=== PATIENT | female | born 1945 | race Caucasian/White ===

== ENCOUNTER → 2020-08-25 | Outpatient (CLI) | payer OTHER | LOC: SJCVCIMAG 07:39 | PROVIDERS: ATTEND Internal Medicine | DX: I08.1 Rheumatic disorders of both mitral and tricuspid valves (principal); I11.9 Hypertensive heart disease without heart failure; I27.20 Pulmonary hypertension, unspecified; I77.819 Aortic ectasia, unspecified site; I48.91 Unspecified atrial fibrillation; E11.9 Type 2 diabetes mellitus without complications; E78.5 Hyperlipidemia, unspecified; Z79.899 Other long term (current) drug therapy ==

== ENCOUNTER → 2020-09-01 | Outpatient (CLI) | payer OTHER ==
--- NOTE | ~2020-09-01 | PFR/MVV ---
[facility] [place] [address] PULMONARY FUNCTION MVV/REPORT Name: BEATRIS VERMA Room #: REG [facility]#: [id number] Admission: 09/01/20 Attend Phys: Adria Mcfadden MD, [facility] Discharge: Date of : 43 Report #: [id number] THIS REPORT FOR: //name// >> SPIROMETRY: (BTPS) Height: in cm Weight: lbs kg Exam Date: PRE-RX POST-RX PRED BEST %PRED BEST %PRED %CHG FVC LITERS . . . . . . FEV1 LITERS . . . . . . FEV1/FVC % . . . . . . DTU74-87% L/Sec . . . . . . PEF L/SEC . . . . . . FEF50/FIF50 UNITLESS . . . . . . MVV L/Min . . . f 1/Min . . . >> LUNG VOLUMES: (BTPS) PRE-RX POST-RX PRED AVG %PRED AVG %PRED %CHG VC Liters . . . . . . TLC Liters . . . . . . RV Liters . . . . . . RV/TLC % . . . . . . FRC PL Liters . . . . . . FRC N2 Liters . . . . . . ERV Liters . . . . . . IC Liters . . . . . . >> DIFFUSION: DLCO ml/Min/mmHg . . . . . . DL Abdoulaye ml/Min/mmHg . . . . . . DLCO/VA ml/Min/mmHg . . . . . . VA Liters . . . . . . COMMENTS: COMMENTS: >> RESISTANCE: [facility] [address] [place] [address] PULMONARY FUNCTION MVV/REPORT Name: BEATRIS VERMA Room #: REG [facility]#: [id number] Admission: 09/01/20 Attend Phys: Adria Mcfadden MD, [facility] Discharge: Date of : 43 Report #: [id number] PRE-RX PRED AVG %PRED Raw Total cmH20/L/Sec . . . Raw Insp cmH20/L/Sec . . . Raw Exp cmH20/L/Sec . . . Raw cmH20/L/Sec . . . Gaw L/Sec/cmH20 . . . sRaw cmH20 Sec . . . sGaw l/cmH20 Sec . . . Vtq Liters . . . # = OUTSIDE 95% CONFIDENCE INTERVAL CALIBRATION: PRED: 3.00 ACTUAL: EXP 3.01 INSP 3.02 [facility] [address] [id number] >> INTERPRETATION/IMPRESSION: DOC #: [id number] Claude Osorio M.D. ATTENDING PHYSICIAN: Dr. Mcfadden. SPIROMETRY: FEV1 is 1.88 liters (100% predicted). FVC is 2.45 liters (90% of predicted), FEV1/FVC ratio is 77%. There is no significant response to bronchodilator therapy. LUNG VOLUMES: Total lung capacity is 5.27 liters (110%). RV is 2.41 liters (122%). Diffusing capacity is 76%. IMPRESSION: Pulmonary function studies are normal. There is no evidence of obstruction. There is no significant response to bronchodilator therapy. Lung volumes are normal with mild hyperinflation. Diffusing capacity is normal. Claude ALMAGUER/CLINT By: Claude Osorio MD /nt
== END ==
LOC: PUL 07:56
PROVIDERS: ATTEND Internal Medicine
DX: J98.11 Atelectasis (principal); I10 Essential (primary) hypertension; R06.02 Shortness of breath

== ENCOUNTER → 2020-09-21 | Outpatient (CLI) | payer OTHER | LOC: RAD 10:29 | PROVIDERS: ATTEND Internal Medicine | DX: R06.00 Dyspnea, unspecified (principal) ==

== ENCOUNTER → 2021-03-19 | Outpatient (CLI) | payer OTHER ==
[~2021-03-19] VITALS: Ht 162.6 cm; Wt 86.8 kg
[~2021-03-19] MED LIST: CALCIUM CITRAT1 EAC7 PO; CHROMIUM400 MCG PO; FLONASE 0.05%50 MCG NASAL; FOLIC ACID0.4 MG PO; LOPRESSOR50 MG PO; METFORMIN HCL500 M3 PO; NEURONTIN300 MG PO; OMEPRAZOLE40 MG PO; SIMVASTATIN40 MG PO; TYLOPHEN500 MG PO; VITAMIN D250 MC1 PO; XARELTO20 MG PO
[2021-03-19 07:43] VITALS: BP 121/73
--- NOTE | 2021-03-19 09:14 | TEE ---
[facility] [place] [address] TRANSESOPHAGEAL ECHOCARDIOGRAM Name: BEATRIS VERMA Room #: REG [facility].#: [id number] Admission: 03/19/21 Attend Phys: Adria Mcfadden MD, Discharge: Date of : 43 Report #: [id number] THIS REPORT FOR: cc: Ronnie Yepez,Ronnie Nesbitt,Adria Maria MD [facility] ~ APPROVED REPORT Study performed: 03/19/2021 07:39:31 EXAM: Transesophageal Echocardiogram with Doppler and cardioversion Patient Location: Out-Patient Status: routine BSA: 1.94 HR: 75 bpm BP: 125/79 mmHg Rhythm: Atrial Fibrillation Other Information Study Quality: Adequate Indications Atrial Fibrillation Cardioversion. Procedure After obtaining informed consent, patient underwent transesophageal echo in the [employer]. Type of Sedation : Conscious Sedation Sedation was administered by Justina Davis RN. Sedation start time: 0759 Case end Time: 808 Sedation was achieved intravenously with: Versed (3) Fentanyl (50) Transesophageal probe was inserted and advanced into esophagus without difficulty by Adria Mcfadden MD. Echo enhancement indication: R/O Septal defect. Echo enhancement agent administered: Agitated Saline The DEE DEE was performed without complications. Synchronized Cardioversion attempted: Successful Synchronized Cardioversion acheived with 150 Joules after 1 attempt(s). Rhythm following Synchronized Cardioversion: Normal Sinus Rhythm Throughout the procedure, the blood pressure, pulse oximetry, cardiac [facility] [address] [place] [address] TRANSESOPHAGEAL ECHOCARDIOGRAM Name: BEATRIS VERMA Room #: REG [facility].#: [id number] Admission: 03/19/21 Attend Phys: Adria Mcfadden, Discharge: Date of : 43 Report #: [id number] rhythm, and rate were monitored. The patient tolerated the procedure without adverse effects. Recovery from conscious sedation was uneventful and vital signs were stable. Left Ventricle The left ventricle is normal size. There is normal LV segmental wall motion. There is normal left ventricular wall thickness. Left ventricular systolic function is normal. LVEF is 55%. Right Ventricle The right ventricle is normal size. The right ventricular systolic function is normal. Atria Severe biatrial enlargement. No shunting noted with contrast bubble injection. No thrombus is visualized in the left atrium or appendage. Aortic Valve The aortic valve is normal in structure. No aortic regurgitation is present. There is no aortic valvular stenosis. Mitral Valve The mitral valve is normal in structure. Moderate mitral regurgitation. No evidence of mitral valve stenosis. Tricuspid Valve The tricuspid valve is normal in structure. Moderate tricuspid regurgitation. Pulmonic Valve The pulmonary valve is normal in structure. Trace pulmonic regurgitation. Great Vessels The aortic root is normal in size. The ascending aorta is normal in size. IVC is normal in size and collapses >50% with inspiration. Pericardium There is no pericardial effusion. <Conclusion> Left ventricular systolic function is normal. There is normal LV segmental wall motion. [facility] [address] [place] [address] TRANSESOPHAGEAL ECHOCARDIOGRAM Name: BEATRIS VERMA Room #: REG [facility].#: [id number] Admission: 03/19/21 Attend Phys: Adria Mcfadden, Discharge: Date of : 43 Report #: [id number] LVEF is 55%. Severe biatrial enlargement. No shunting noted with contrast bubble injection. No thrombus is visualized in the left atrium or appendage. The aortic valve is normal in structure. No aortic regurgitation or stenosis. The mitral valve is normal in structure. Moderate mitral regurgitation. There is no pericardial effusion. Successful cardioversion of atrial fibrillation to sinus rhythm following a single 150 J biphasic synchronous shock. <ELECTRONICALLY SIGNED> By: Adria Mcfadden MD, FACC 03/19/21913 3 3 Adria Mcfadden MD, FACC /INF
== END | disposition home or self-care (01) ==
LOC: CATH 06:27
PROVIDERS: ATTEND Internal Medicine
DX: I48.91 Unspecified atrial fibrillation (principal); I34.0 Nonrheumatic mitral (valve) insufficiency; I10 Essential (primary) hypertension; E11.9 Type 2 diabetes mellitus without complications; E78.5 Hyperlipidemia, unspecified; Z98.890 Other specified postprocedural states; Z79.899 Other long term (current) drug therapy; Z79.01 Long term (current) use of anticoagulants